=== PATIENT | female | born 1950 | race Caucasian/White ===

== ENCOUNTER 2016-12-15 16:57 | Emergency (ER) | payer MEDICARE ==
[~2016-12-15] VITALS: Ht 152.4 cm; Wt 47.3 kg
[2016-12-15] MEDS ORDERED: LAMO100 PO (17:55)
[2016-12-15] MEDS ORDERED: PHENY100 PO (17:55)
[2016-12-15] MEDS ORDERED: LEVE500T53 PO ×2 (17:55)
[2016-12-15] MEDS ORDERED: LamoTRIgine 100 MG TABLET PO ONE (18:15)
[2016-12-15] MEDS ORDERED: LevETIRAcetam 500 MG TABLET PO ONE (18:15)
[2016-12-15] MEDS ORDERED: PHENYTOIN SODIUM 100 MG ER CAPSULE PO ONE (18:15)
[2016-12-15 18:25] LABS: BASOPHILS # (AUTO) 0.01 K/uL (0.00-0.20); BASOPHILS % (AUTO) 0.1 % (0.0-2.0); EOSINOPHILS # (AUTO) 0.09 K/uL (0.00-0.70); EOSINOPHILS % (AUTO) 1.07 % (1.0-6.0); HEMATOCRIT 40.7 % (36-46); HEMOGLOBIN 14.2 g/dL (12.0-16.0); LYMPHOCYTES % (AUTO) 22.2 % (22.0-44.0); MEAN CORPUSCULAR HEMOGLOBIN 32.6 pg (26.0-34.0); MEAN CORPUSCULAR HGB CONC 34.8 G/dL (31.0-37.0); MEAN CORPUSCULAR VOLUME 94 fL (80-100); MONOCYTES # (AUTO) 0.6 K/uL (0.1-1.0); MONOCYTES % (AUTO) 6.3 % (2.0-9.0); NEUTROPHILS # (AUTO) 6.3 K/uL (1.8-7.7); NEUTROPHILS % (AUTO) 70.3 % (40.0-70.0); PLATELET COUNT (AUTO) 375 K/uL (150-450); RED BLOOD CELL COUNT(AUTO) 4.35 MIL/uL (4.00-5.20); RED CELL DISTRIBUTION WIDTH 14.2 % (11.5-14.5); WHITE BLOOD COUNT (AUTO) 8.9 K/uL (4.5-11.0)
[2016-12-15 18:52] LABS: ANION GAP 9 mmol/L (8-16); CALCIUM, TOTAL 8.4 mg/dL (8.8-10.5); CARBON DIOXIDE 26 mmol/L (22-29); CHLORIDE 95 mmol/L (98-107); CREATININE 0.58 mg/dL (0.60-1.30); GLOMERULAR FILTR. RATE CALC > 60 mL/min (>60); POTASSIUM 3.9 mmol/L (3.5-5.1); SODIUM SERUM 130 mmol/L (136-145); UREA NITROGEN, BLOOD 8 mg/dL (7-18)
[2016-12-15 18:57] LABS: ALANINE AMINOTRANSFERASE 25 U/L (12-78); ALBUMIN 3.8 g/dL (3.4-5.0); ASPARTATE AMINOTRANSFERASE 24 U/L (15-37); BILIRUBIN,TOTAL 0.2 mg/dL (0.1-1.0); TOTAL PROTEIN, SERUM 6.9 g/dL (6.4-8.2)
[2016-12-15 19:32] LABS: ADD UA MICROSCOPIC YES; APPEARANCE,URINE CLEAR (CLEAR); GLUCOSE, URINE (UA) NEGATIVE (NEGATIVE); KETONES,URINE NEGATIVE (NEGATIVE); LEUKOCYTE ESTERASE ,URINE TRACE (NEGATIVE); OCCULT BLOOD,URINE NEGATIVE (NEGATIVE); PROTEIN,URINE NEGATIVE (NEGATIVE)
[2016-12-15 19:34] LABS: RBC,URINE None Seen /HPF (0-2); WBC,URINE 0-2 /HPF (0-5)
[2016-12-15 19:35] LABS: SQUAMOUS EPITHELIAL CELL,UR Rare /LPF (None Seen)
[2016-12-15 20:32] VITALS: BP 137/92
== END 2016-12-15 20:36 | disposition home or self-care (01) ==
LOC: EMS 16:57
DX: G40.909 Epilepsy, unspecified, not intractable, without status epilepticus (principal); Z91.14 Patient's other noncompliance with medication regimen
CPT/HCPCS: 93005; 99285

== ENCOUNTER 2016-12-17 06:17 | Emergency (ER) | payer MEDICARE ==
[~2016-12-17] VITALS: Ht 160 cm; Wt 64.0 kg
[~2016-12-17 06:17] MED LIST: LAMO100 PO; LEVE500T53 PO; PHENY100 PO
[2016-12-17] MEDS ORDERED: LamoTRIgine 100 MG TABLET PO ONE (06:45)
[2016-12-17] MEDS ORDERED: LevETIRAcetam 500 MG TABLET PO ONE (06:45)
[2016-12-17 11:50] VITALS: BP 129/86
== END 2016-12-17 12:14 | disposition home or self-care (01) ==
LOC: EMS 06:17
DX: G40.909 Epilepsy, unspecified, not intractable, without status epilepticus (principal); F17.200 Nicotine dependence, unspecified, uncomplicated
CPT/HCPCS: 99283

== ENCOUNTER 2016-12-18 12:42 | Inpatient (IN) | payer MEDICARE ==
[~2016-12-18] VITALS: Ht 149.9 cm; Wt 36.1 kg
[2016-12-18 13:41] LABS: BASOPHILS % (AUTO) 0.3 % (0.0-2.0); EOSINOPHILS % (AUTO) 0.7 % (1.0-6.0); HEMATOCRIT 41.5 % (36-46); HEMOGLOBIN 14.3 g/dL (12.0-16.0); LYMPHOCYTES # (AUTO) 1.8 K/uL (1.0-4.8); LYMPHOCYTES % (AUTO) 15.2 % (22.0-44.0); MEAN CORPUSCULAR HEMOGLOBIN 32.7 pg (26.0-34.0); MEAN CORPUSCULAR HGB CONC 34.6 G/dL (31.0-37.0); MEAN CORPUSCULAR VOLUME 95 fL (80-100); MONOCYTES # (AUTO) 1.1 K/uL (0.1-1.0); MONOCYTES % (AUTO) 9.6 % (2.0-9.0); NEUTROPHILS # (AUTO) 8.6 K/uL (1.8-7.7); NEUTROPHILS % (AUTO) 74.2 % (40.0-70.0); PLATELET COUNT (AUTO) 350 K/uL (150-450); RED BLOOD CELL COUNT(AUTO) 4.38 MIL/uL (4.00-5.20); RED CELL DISTRIBUTION WIDTH 13.9 % (11.5-14.5); WHITE BLOOD COUNT (AUTO) 11.6 K/uL (4.5-11.0)
[2016-12-18 13:51] LABS: ANION GAP 6 mmol/L (8-16); CALCIUM, TOTAL 8.5 mg/dL (8.8-10.5); CARBON DIOXIDE 31 mmol/L (22-29); CHLORIDE 88 mmol/L (98-107); CREATININE 0.69 mg/dL (0.60-1.30); GLOMERULAR FILTR. RATE CALC > 60 mL/min (>60); POTASSIUM 3.7 mmol/L (3.5-5.1); SODIUM SERUM 125 mmol/L (136-145); UREA NITROGEN, BLOOD 15 mg/dL (7-18)
[2016-12-18 13:57] LABS: ALANINE AMINOTRANSFERASE 30 U/L (12-78); ALBUMIN 3.8 g/dL (3.4-5.0); ASPARTATE AMINOTRANSFERASE 32 U/L (15-37); BILIRUBIN,TOTAL 0.4 mg/dL (0.1-1.0)
[2016-12-18] MEDS ORDERED: SODIUM CHLORIDE 0.9% 1,000 ML IV ONE (15:30)
[2016-12-18 16:07] LABS: APPEARANCE,URINE CLEAR (CLEAR); GLUCOSE, URINE (UA) NEGATIVE (NEGATIVE); KETONES,URINE NEGATIVE (NEGATIVE); LEUKOCYTE ESTERASE ,URINE NEGATIVE (NEGATIVE); OCCULT BLOOD,URINE NEGATIVE (NEGATIVE); PH,URINE 6.5 (5.0-8.0); PROTEIN,URINE NEGATIVE (NEGATIVE)
[2016-12-18 16:08] LABS: ADD UA MICROSCOPIC NO
[2016-12-18] MEDS ORDERED: ACETAMINOPHEN 325 MG TABLET PO PRN ×2 (17:15→22:45)
[2016-12-18] MEDS ORDERED: 0.9% SODIUM CHLORIDE 10 ML SYRINGE IVP PRN (17:15)
[2016-12-18] MEDS ORDERED: ONDANSETRON HCL 4 MG/2 ML VIAL IVP PRN ×2 (17:15→22:45)
[2016-12-18 18:29] VITALS: BP 169/94
[2016-12-18] MEDS: PHENYTOIN SODIUM 100 MG ER CAPSULE PO SCH (21:58)
[2016-12-18] MEDS: LevETIRAcetam 500 MG TABLET PO SCH (21:58)
[2016-12-18] MEDS: LamoTRIgine 100 MG TABLET PO SCH (21:59)
[2016-12-18] MEDS ORDERED: HydrALAZINE HCL 25 MG TABLET PO PRN (22:45)
[2016-12-18 23:20] VITALS: BP 142/86
[2016-12-19] MEDS ORDERED: ONDANSETRON HCL 4 MG/2 ML VIAL IVP PRN (01:30)
[2016-12-19] MEDS: DOCUSATE SODIUM 100 MG CAPSULE PO SCH ×3 (01:30→19:46)
[2016-12-19] MEDS ORDERED: 0.9% SODIUM CHLORIDE 10 ML SYRINGE IVP PRN (01:30)
[2016-12-19] MEDS ORDERED: OxyCODONE HCL/ACETAMINOPHEN 5-325 MG TABLET PO PRN ×2 (01:30)
[2016-12-19 04:41] VITALS: BP 139/89
[2016-12-19 07:26] VITALS: BP 135/84
[2016-12-19] MEDS: PHENYTOIN SODIUM 100 MG ER CAPSULE PO SCH ×2 (10:24→19:46)
[2016-12-19] MEDS: LevETIRAcetam 500 MG TABLET PO SCH ×2 (10:24→19:46)
[2016-12-19] MEDS: PANTOPRAZOLE SODIUM 40 MG DR TABLET PO SCH (10:24)
[2016-12-19] MEDS: LamoTRIgine 100 MG TABLET PO SCH ×2 (10:24→19:46)
[2016-12-19 12:01] VITALS: BP 147/91
[2016-12-19 15:13] LABS: BASOPHILS % (AUTO) 1.2 % (0.0-2.0); HEMOGLOBIN 15.2 g/dL (12.0-16.0); LYMPHOCYTES # (AUTO) 2.1 K/uL (1.0-4.8); LYMPHOCYTES % (AUTO) 23.6 % (22.0-44.0); MEAN CORPUSCULAR HEMOGLOBIN 32.6 pg (26.0-34.0); MEAN CORPUSCULAR HGB CONC 34.6 G/dL (31.0-37.0); MEAN CORPUSCULAR VOLUME 94 fL (80-100); MONOCYTES # (AUTO) 0.8 K/uL (0.1-1.0); MONOCYTES % (AUTO) 8.5 % (2.0-9.0); NEUTROPHILS % (AUTO) 65.7 % (40.0-70.0); PLATELET COUNT (AUTO) 353 K/uL (150-450); RED BLOOD CELL COUNT(AUTO) 4.67 MIL/uL (4.00-5.20); RED CELL DISTRIBUTION WIDTH 13.8 % (11.5-14.5); WHITE BLOOD COUNT (AUTO) 9.1 K/uL (4.5-11.0)
[2016-12-19 16:00] LABS: ANION GAP 12 mmol/L (8-16); CALCIUM, TOTAL 8.8 mg/dL (8.8-10.5); CARBON DIOXIDE 24 mmol/L (22-29); CHLORIDE 89 mmol/L (98-107); CREATININE 0.42 mg/dL (0.60-1.30); GLOMERULAR FILTR. RATE CALC > 60 mL/min (>60); POTASSIUM 3.6 mmol/L (3.5-5.1); SODIUM SERUM 125 mmol/L (136-145); UREA NITROGEN, BLOOD 5 mg/dL (7-18)
[2016-12-19 16:11] LABS: ALANINE AMINOTRANSFERASE 31 U/L (12-78); ALBUMIN 4.2 g/dL (3.4-5.0); ASPARTATE AMINOTRANSFERASE 33 U/L (15-37); BILIRUBIN,TOTAL 0.4 mg/dL (0.1-1.0)
[2016-12-19 19:57] VITALS: BP 158/92
[2016-12-20 05:45] VITALS: BP 140/85
[2016-12-20 06:26] LABS: BASOPHILS % (AUTO) 0.2 % (0.0-2.0); EOSINOPHILS % (AUTO) 1.7 % (1.0-6.0); LYMPHOCYTES # (AUTO) 2.1 K/uL (1.0-4.8); MEAN CORPUSCULAR HEMOGLOBIN 32.4 pg (26.0-34.0); MEAN CORPUSCULAR HGB CONC 34.2 G/dL (31.0-37.0); MEAN CORPUSCULAR VOLUME 95 fL (80-100); MONOCYTES # (AUTO) 0.8 K/uL (0.1-1.0); MONOCYTES % (AUTO) 10.2 % (2.0-9.0); NEUTROPHILS # (AUTO) 4.6 K/uL (1.8-7.7); NEUTROPHILS % (AUTO) 59.9 % (40.0-70.0); PLATELET COUNT (AUTO) 337 K/uL (150-450); RED BLOOD CELL COUNT(AUTO) 4.33 MIL/uL (4.00-5.20); RED CELL DISTRIBUTION WIDTH 14.1 % (11.5-14.5); WHITE BLOOD COUNT (AUTO) 7.7 K/uL (4.5-11.0)
[2016-12-20 07:01] LABS: ALANINE AMINOTRANSFERASE 27 U/L (12-78); ALBUMIN 3.5 g/dL (3.4-5.0); ANION GAP 9 mmol/L (8-16); ASPARTATE AMINOTRANSFERASE 28 U/L (15-37); BILIRUBIN,TOTAL 0.4 mg/dL (0.1-1.0); CALCIUM, TOTAL 8.3 mg/dL (8.8-10.5); CARBON DIOXIDE 27 mmol/L (22-29); CHLORIDE 90 mmol/L (98-107); CREATININE 0.49 mg/dL (0.60-1.30); GLOMERULAR FILTR. RATE CALC > 60 mL/min (>60); POTASSIUM 3.4 mmol/L (3.5-5.1); SODIUM SERUM 126 mmol/L (136-145); TOTAL PROTEIN, SERUM 6.7 g/dL (6.4-8.2); UREA NITROGEN, BLOOD 4 mg/dL (7-18)
[2016-12-20 07:46] VITALS: BP 138/83
[2016-12-20] MEDS: DOCUSATE SODIUM 100 MG CAPSULE PO SCH ×2 (08:06→20:32)
[2016-12-20] MEDS: PHENYTOIN SODIUM 100 MG ER CAPSULE PO SCH ×2 (08:06→20:33)
[2016-12-20] MEDS: LevETIRAcetam 500 MG TABLET PO SCH ×2 (08:06→20:33)
[2016-12-20] MEDS: LamoTRIgine 100 MG TABLET PO SCH ×2 (08:06→20:33)
[2016-12-20] MEDS: PANTOPRAZOLE SODIUM 40 MG DR TABLET PO SCH (08:06)
[2016-12-20 11:30] VITALS: BP 140/73
[2016-12-20 15:18] VITALS: BP 122/89
[2016-12-20] MEDS ORDERED: POTASSIUM CHLORIDE 20 MEQ ER TABLET PO ONE (16:30)
[2016-12-20] MEDS: SODIUM CHLORIDE 0.9% 1,000 ML IV SCH (17:24)
[2016-12-20 19:37] VITALS: BP 122/68
[2016-12-20 23:08] VITALS: BP 112/74
[2016-12-21 04:00] VITALS: BP 107/81
[2016-12-21] MEDS: SODIUM CHLORIDE 0.9% 1,000 ML IV SCH ×2 (05:35→18:15)
[2016-12-21 06:03] LABS: BASOPHILS % (AUTO) 0.1 % (0.0-2.0); EOSINOPHILS % (AUTO) 2.3 % (1.0-6.0); HEMATOCRIT 37.9 % (36-46); HEMOGLOBIN 13.1 g/dL (12.0-16.0); LYMPHOCYTES # (AUTO) 2.2 K/uL (1.0-4.8); LYMPHOCYTES % (AUTO) 28.6 % (22.0-44.0); MEAN CORPUSCULAR HEMOGLOBIN 32.8 pg (26.0-34.0); MEAN CORPUSCULAR HGB CONC 34.5 G/dL (31.0-37.0); MEAN CORPUSCULAR VOLUME 95 fL (80-100); MONOCYTES # (AUTO) 0.7 K/uL (0.1-1.0); MONOCYTES % (AUTO) 8.9 % (2.0-9.0); NEUTROPHILS # (AUTO) 4.6 K/uL (1.8-7.7); NEUTROPHILS % (AUTO) 60.1 % (40.0-70.0); PLATELET COUNT (AUTO) 333 K/uL (150-450); RED BLOOD CELL COUNT(AUTO) 3.99 MIL/uL (4.00-5.20); RED CELL DISTRIBUTION WIDTH 14.2 % (11.5-14.5); WHITE BLOOD COUNT (AUTO) 7.6 K/uL (4.5-11.0)
[2016-12-21 07:14] VITALS: BP 138/68
[2016-12-21 07:37] LABS: ALANINE AMINOTRANSFERASE 25 U/L (12-78); ALBUMIN 3.1 g/dL (3.4-5.0); ANION GAP 8 mmol/L (8-16); ASPARTATE AMINOTRANSFERASE 21 U/L (15-37); BILIRUBIN,TOTAL 0.3 mg/dL (0.1-1.0); CARBON DIOXIDE 25 mmol/L (22-29); CHLORIDE 93 mmol/L (98-107); CREATININE 0.44 mg/dL (0.60-1.30); GLOMERULAR FILTR. RATE CALC > 60 mL/min (>60); SODIUM SERUM 126 mmol/L (136-145); UREA NITROGEN, BLOOD 5 mg/dL (7-18)
[2016-12-21] MEDS: PANTOPRAZOLE SODIUM 40 MG DR TABLET PO SCH (09:13)
[2016-12-21] MEDS: PHENYTOIN SODIUM 100 MG ER CAPSULE PO SCH ×2 (09:13→20:22)
[2016-12-21] MEDS: DOCUSATE SODIUM 100 MG CAPSULE PO SCH ×2 (09:13→21:00)
[2016-12-21] MEDS: LamoTRIgine 100 MG TABLET PO SCH ×2 (09:15→20:23)
[2016-12-21] MEDS: LevETIRAcetam 500 MG TABLET PO SCH ×2 (09:16→20:23)
[2016-12-21] MEDS ORDERED: POTASSIUM CHLORIDE 20 MEQ ER TABLET PO ONE (10:00)
[2016-12-21 11:42] VITALS: BP 115/68
[2016-12-21 15:30] VITALS: BP 152/78
[2016-12-21 19:18] VITALS: BP 123/70
[2016-12-21] MEDS: SODIUM CHLORIDE 1 GM TABLET PO SCH (20:23)
[2016-12-21 23:18] VITALS: BP 137/83
[2016-12-22 04:00] VITALS: BP 117/67
[2016-12-22 05:51] LABS: BASOPHILS # (AUTO) 0.06 K/uL (0.00-0.20); BASOPHILS % (AUTO) 0.8 % (0.0-2.0); EOSINOPHILS % (AUTO) 2.49 % (1.0-6.0); HEMATOCRIT 41.1 % (36-46); LYMPHOCYTES # (AUTO) 2.3 K/uL (1.0-4.8); LYMPHOCYTES % (AUTO) 28.3 % (22.0-44.0); MEAN CORPUSCULAR HEMOGLOBIN 32.5 pg (26.0-34.0); MEAN CORPUSCULAR VOLUME 96 fL (80-100); MONOCYTES # (AUTO) 0.7 K/uL (0.1-1.0); MONOCYTES % (AUTO) 8.6 % (2.0-9.0); NEUTROPHILS # (AUTO) 4.8 K/uL (1.8-7.7); NEUTROPHILS % (AUTO) 59.8 % (40.0-70.0); PLATELET COUNT (AUTO) 326 K/uL (150-450); RED CELL DISTRIBUTION WIDTH 14.6 % (11.5-14.5)
[2016-12-22 06:09] LABS: ALANINE AMINOTRANSFERASE 25 U/L (12-78); ALBUMIN 3.2 g/dL (3.4-5.0); ANION GAP 8 mmol/L (8-16); ASPARTATE AMINOTRANSFERASE 22 U/L (15-37); BILIRUBIN,TOTAL 0.2 mg/dL (0.1-1.0); CALCIUM, TOTAL 8.4 mg/dL (8.8-10.5); CARBON DIOXIDE 27 mmol/L (22-29); CHLORIDE 97 mmol/L (98-107); CREATININE 0.44 mg/dL (0.60-1.30); GLOMERULAR FILTR. RATE CALC > 60 mL/min (>60); POTASSIUM 4.6 mmol/L (3.5-5.1); SODIUM SERUM 132 mmol/L (136-145); TOTAL PROTEIN, SERUM 6.3 g/dL (6.4-8.2); UREA NITROGEN, BLOOD 6 mg/dL (7-18)
[2016-12-22 08:02] VITALS: BP 132/74
[2016-12-22] MEDS: LamoTRIgine 100 MG TABLET PO SCH (08:57)
[2016-12-22] MEDS: PHENYTOIN SODIUM 100 MG ER CAPSULE PO SCH (08:58)
[2016-12-22] MEDS: LevETIRAcetam 500 MG TABLET PO SCH (08:58)
[2016-12-22] MEDS: DOCUSATE SODIUM 100 MG CAPSULE PO SCH (08:58)
[2016-12-22] MEDS: PANTOPRAZOLE SODIUM 40 MG DR TABLET PO SCH (08:58)
[2016-12-22] MEDS: SODIUM CHLORIDE 1 GM TABLET PO SCH (08:58)
[2016-12-22 11:56] VITALS: BP 133/74
[2016-12-22 15:26] VITALS: BP 119/54
== END 2016-12-22 16:52 | disposition home or self-care (01) | DRG 100 ==
LOC: EMS 12:43 → 6N 17:38
PROVIDERS: ADMIT Internal Medicine; ATTEND Internal Medicine
DX: G40.909 Epilepsy, unspecified, not intractable, without status epilepticus (principal); G93.41 Metabolic encephalopathy; E87.1 Hypo-osmolality and hyponatremia; I42.9 Cardiomyopathy, unspecified; Z68.1 Body mass index [BMI] 19.9 or less, adult; Z90.49 Acquired absence of other specified parts of digestive tract; Z95.810 Presence of automatic (implantable) cardiac defibrillator; F17.210 Nicotine dependence, cigarettes, uncomplicated; E87.6 Hypokalemia; I10 Essential (primary) hypertension; R63.6 Underweight
CPT/HCPCS: 70450; 83930; 83935; 84300; 84443; 93005; 95816; 96360; 99285; J7030

== ENCOUNTER 2017-10-29 18:20 | Inpatient (IN) | payer MEDICARE ==
[~2017-10-29] VITALS: Ht 144.8 cm; Wt 43.4 kg
[2017-10-29 19:39] LABS: GLUCOSE,POINT OF CARE 126 MG/DL (70-110)
[2017-10-29] MEDS ORDERED: RISP3TAB13 PO ×2 (19:46→22:09)
[2017-10-29] MEDS ORDERED: LAMO200T51 PO (19:46)
[2017-10-29 20:07] LABS: BASOPHILS % (AUTO) 0.3 % (0.0-2.0); EOSINOPHILS % (AUTO) 0 % (1.0-6.0); HEMATOCRIT 42.5 % (36-46); HEMOGLOBIN 14.9 g/dL (12.0-16.0); LYMPHOCYTES # (AUTO) 1.2 K/uL (1.0-4.8); MEAN CORPUSCULAR HEMOGLOBIN 32.9 pg (26.0-34.0); MEAN CORPUSCULAR HGB CONC 35.1 G/dL (31.0-37.0); MEAN CORPUSCULAR VOLUME 94 fL (80-100); MONOCYTES # (AUTO) 0.5 K/uL (0.1-1.0); NEUTROPHILS # (AUTO) 7.8 K/uL (1.8-7.7); NEUTROPHILS % (AUTO) 81.7 % (40.0-70.0); PLATELET COUNT (AUTO) 430 K/uL (150-450); RED BLOOD CELL COUNT(AUTO) 4.53 MIL/uL (4.00-5.20); RED CELL DISTRIBUTION WIDTH 14.1 % (11.5-14.5)
[2017-10-29 20:22] LABS: ANION GAP 9 mmol/L (8-16); CALCIUM, TOTAL 9.9 mg/dL (8.8-10.5); CARBON DIOXIDE 29 mmol/L (22-29); CHLORIDE 95 mmol/L (98-107); CREATININE 0.65 mg/dL (0.60-1.30); GLOMERULAR FILTR. RATE CALC > 60 mL/min (>60); GLUCOSE,RANDOM 127 mg/dL (70-110); POTASSIUM 3.9 mmol/L (3.5-5.1); SODIUM SERUM 133 mmol/L (136-145); UREA NITROGEN, BLOOD 13 mg/dL (7-18)
[2017-10-29 20:28] LABS: ALANINE AMINOTRANSFERASE 27 U/L (12-78); ALBUMIN 4.3 g/dL (3.4-5.0); ALKALINE PHOSPHATASE 190 U/L (46-116); ASPARTATE AMINOTRANSFERASE 28 U/L (15-37); BILIRUBIN,TOTAL 0.4 mg/dL (0.1-1.0); LIPASE 222 U/L (73-393); TOTAL PROTEIN, SERUM 7.9 g/dL (6.4-8.2)
[2017-10-29] MEDS ORDERED: RisperiDONE 1 MG TABLET PO ONE (22:00)
[2017-10-29] MEDS ORDERED: LORazepam 2 MG TABLET PO ONE (22:00)
[2017-10-29] MEDS: LevETIRAcetam 500 MG TABLET PO ONE ×2 (22:07→22:13)
[2017-10-29 22:08] LABS: PHENYTOIN (DILANTIN) 3.1 mcg/mL (10.0-20.0)
[2017-10-29] MEDS ORDERED: LevETIRAcetam 1,000 MG in DEXTROSE 5%-WATER 100 ML IV ONE (22:30)
[2017-10-29] MEDS ORDERED: LORazepam 2 MG/ML VIAL IVP ONE (22:30)
[2017-10-30] VITALS (7 sets, daily range): BP systolic 121–146; BP diastolic 73–112
[2017-10-30] MEDS ORDERED: 0.9% SODIUM CHLORIDE 10 ML SYRINGE IVP PRN
[2017-10-30] MEDS ORDERED: PHENYTOIN SODIUM 100 MG ER CAPSULE PO ONE
[2017-10-30] MEDS ORDERED: ONDANSETRON HCL 4 MG/2 ML VIAL IVP PRN ×2 (01:15)
[2017-10-30] MEDS ORDERED: IPRATROPIUM BROMIDE 0.5 MG/2.5 ML NEB SOLUTION NEB PRN (01:15)
[2017-10-30] MEDS ORDERED: ACETAMINOPHEN 325 MG TABLET PO PRN ×2 (01:15)
[2017-10-30] MEDS ORDERED: BISACODYL 10 MG RECTAL RECTAL SUPPOSITORY PR PRN (01:15)
[2017-10-30] MEDS ORDERED: ALBUTEROL SULFATE 2.5 MG/0.5 ML NEB SOLUTION NEB PRN (01:15)
[2017-10-30] MEDS ORDERED: ZOLPIDEM TARTRATE 5 MG TABLET PO PRN (01:15)
[2017-10-30] MEDS ORDERED: HYDROCODONE/ACETAMINOPHEN 5-325 MG TABLET PO PRN (01:15)
[2017-10-30] MEDS ORDERED: PHENYTOIN SODIUM 1,000 MG in SODIUM CHLORIDE 0.9% 150 ML IV ONE (02:00)
[2017-10-30] MEDS ORDERED: LevETIRAcetam 500 MG TABLET PO ONE (07:00)
[2017-10-30] MEDS: LevETIRAcetam 500 MG TABLET PO SCH ×2 (08:59→21:04)
[2017-10-30] MEDS: HEPARIN SODIUM,PORCINE 5,000 UNITS/ML VIAL SQ SCH ×2 (08:59→21:05)
[2017-10-30] MEDS: PANTOPRAZOLE SODIUM 40 MG DR TABLET PO SCH (08:59)
[2017-10-30] MEDS: PHENYTOIN SODIUM 100 MG ER CAPSULE PO SCH ×2 (08:59→20:56)
[2017-10-31] VITALS (7 sets, daily range): BP systolic 102–182; BP diastolic 56–101
[2017-10-31 06:59] LABS: BASOPHILS % (AUTO) 0.3 % (0.0-2.0); EOSINOPHILS % (AUTO) 0.1 % (1.0-6.0); HEMATOCRIT 41.5 % (36-46); HEMOGLOBIN 14.7 g/dL (12.0-16.0); LYMPHOCYTES # (AUTO) 1.4 K/uL (1.0-4.8); LYMPHOCYTES % (AUTO) 14.2 % (22.0-44.0); MEAN CORPUSCULAR HEMOGLOBIN 33.1 pg (26.0-34.0); MEAN CORPUSCULAR HGB CONC 35.4 G/dL (31.0-37.0); MEAN CORPUSCULAR VOLUME 94 fL (80-100); MONOCYTES # (AUTO) 0.7 K/uL (0.1-1.0); MONOCYTES % (AUTO) 7.1 % (2.0-9.0); NEUTROPHILS # (AUTO) 7.8 K/uL (1.8-7.7); NEUTROPHILS % (AUTO) 78.3 % (40.0-70.0); PLATELET COUNT (AUTO) 393 K/uL (150-450); RED BLOOD CELL COUNT(AUTO) 4.44 MIL/uL (4.00-5.20); RED CELL DISTRIBUTION WIDTH 13.6 % (11.5-14.5)
[2017-10-31 07:24] LABS: ALANINE AMINOTRANSFERASE 28 U/L (12-78); ALBUMIN 3.9 g/dL (3.4-5.0); ALKALINE PHOSPHATASE 154 U/L (46-116); ANION GAP 10 mmol/L (8-16); ASPARTATE AMINOTRANSFERASE 33 U/L (15-37); BILIRUBIN,TOTAL 0.5 mg/dL (0.1-1.0); CALCIUM, TOTAL 8.9 mg/dL (8.8-10.5); CARBON DIOXIDE 29 mmol/L (22-29); CHLORIDE 94 mmol/L (98-107); CHOL/HDL RATIO 2.2 (3.9-5.7); CHOLESTEROL 183 mg/dL (131-200); CREATININE 0.58 mg/dL (0.60-1.30); GLOMERULAR FILTR. RATE CALC > 60 mL/min (>60); GLUCOSE,RANDOM 113 mg/dL (70-110); HDL CHOLESTEROL 83 mg/dL (40-60); LDL CHOL (CALC.) 92 mg/dL (0-130); PHOSPHORUS 2.9 mg/dL (2.5-4.9); POTASSIUM 3.2 mmol/L (3.5-5.1); SODIUM SERUM 133 mmol/L (136-145); THYROID STIMULATING HORMONE 1.37 uIU/mL (0.36-3.74); TOTAL PROTEIN, SERUM 7.2 g/dL (6.4-8.2); TRIGLYCERIDES 40 mg/dL (15-150); UREA NITROGEN, BLOOD 13 mg/dL (7-18)
[2017-10-31 07:26] LABS: HEMOGLOBIN A1C 4.8 % (4.5-6.2)
[2017-10-31] MEDS: PHENYTOIN SODIUM 100 MG ER CAPSULE PO SCH ×4 (08:14→21:36)
[2017-10-31] MEDS: LevETIRAcetam 500 MG TABLET PO SCH ×2 (08:14→21:36)
[2017-10-31] MEDS: HEPARIN SODIUM,PORCINE 5,000 UNITS/ML VIAL SQ SCH ×2 (08:14→21:36)
[2017-10-31] MEDS: PANTOPRAZOLE SODIUM 40 MG DR TABLET PO SCH (08:14)
[2017-10-31] MEDS ORDERED: POTASSIUM CHLORIDE 20 MEQ ER TABLET PO PRN (08:15)
[2017-10-31 09:22] LABS: AMPHET/METH SCREEN,URINE NEGATIVE (NEGATIVE); BARBITURATE SCREEN, URINE NEGATIVE (NEGATIVE); BENZODIAZEPINES SCREEN,URINE NEGATIVE (NEGATIVE); CANNABINOID SCREEN,URINE NEGATIVE (NEGATIVE); COCAINE SCREEN,URINE NEGATIVE (NEGATIVE); METHADONE SCREEN, URINE NEGATIVE (NEGATIVE); OPIATE SCREEN,URINE NEGATIVE (NEGATIVE)
[2017-10-31 09:28] LABS: PHENCYCLIDINE SCREEN,URINE NEGATIVE (NEGATIVE)
[2017-10-31] MEDS ORDERED: LORazepam 2 MG/ML VIAL IVP PRN (10:30)
[2017-10-31] MEDS ORDERED: PHENYTOIN SODIUM 1,000 MG in SODIUM CHLORIDE 0.9% 150 ML IV ONE (10:30)
[2017-10-31] MEDS ORDERED: SODIUM CHLORIDE 0.9% 100 ML ONE (10:59)
[2017-10-31] MEDS: POTASSIUM CHL 10 MEQ/WATER 50 ML IV PRN ×3 (13:13→15:43)
[2017-10-31] MEDS ORDERED: SODIUM CHLORIDE 0.9% 250 ML IV ONE (14:14)
[2017-11-01] VITALS (7 sets, daily range): BP systolic 98–159; BP diastolic 65–102
[2017-11-01 06:13] LABS: BASOPHILS % (AUTO) 0.3 % (0.0-2.0); EOSINOPHILS % (AUTO) 0.1 % (1.0-6.0); HEMATOCRIT 42.8 % (36-46); HEMOGLOBIN 15.1 g/dL (12.0-16.0); LYMPHOCYTES # (AUTO) 1.7 K/uL (1.0-4.8); LYMPHOCYTES % (AUTO) 14.9 % (22.0-44.0); MEAN CORPUSCULAR HEMOGLOBIN 32.9 pg (26.0-34.0); MEAN CORPUSCULAR HGB CONC 35.3 G/dL (31.0-37.0); MEAN CORPUSCULAR VOLUME 93 fL (80-100); NEUTROPHILS # (AUTO) 8.5 K/uL (1.8-7.7); NEUTROPHILS % (AUTO) 75.7 % (40.0-70.0); PLATELET COUNT (AUTO) 383 K/uL (150-450); RED BLOOD CELL COUNT(AUTO) 4.59 MIL/uL (4.00-5.20); RED CELL DISTRIBUTION WIDTH 13.8 % (11.5-14.5)
[2017-11-01 06:53] LABS: ANION GAP 12 mmol/L (8-16); CALCIUM, TOTAL 8.9 mg/dL (8.8-10.5); CARBON DIOXIDE 28 mmol/L (22-29); CHLORIDE 95 mmol/L (98-107); CREATININE 0.47 mg/dL (0.60-1.30); GLOMERULAR FILTR. RATE CALC > 60 mL/min (>60); GLUCOSE,RANDOM 124 mg/dL (70-110); PHOSPHORUS 2.9 mg/dL (2.5-4.9); SODIUM SERUM 135 mmol/L (136-145); UREA NITROGEN, BLOOD 11 mg/dL (7-18)
[2017-11-01 07:07] LABS: POTASSIUM 2.7 mmol/L (3.5-5.1)
[2017-11-01 07:34] LABS: PHENYTOIN (DILANTIN) 20.7 mcg/mL (10.0-20.0)
[2017-11-01] MEDS: POTASSIUM CHL 10 MEQ/WATER 50 ML IV PRN ×4 (08:10→12:04)
[2017-11-01] MEDS: PANTOPRAZOLE SODIUM 40 MG DR TABLET PO SCH (08:15)
[2017-11-01] MEDS: HEPARIN SODIUM,PORCINE 5,000 UNITS/ML VIAL SQ SCH ×2 (08:16→21:19)
[2017-11-01] MEDS: LevETIRAcetam 500 MG TABLET PO SCH ×2 (08:16→21:18)
[2017-11-01] MEDS: PHENYTOIN SODIUM 100 MG ER CAPSULE PO SCH ×3 (08:27→21:18)
[2017-11-01] MEDS ORDERED: SODIUM CHLORIDE 0.9% 1,000 ML IV ONE (08:29)
[2017-11-01] MEDS: METOPROLOL SUCCINATE 25 MG ER TABLET PO SCH (15:02)
[2017-11-01 21:14] LABS: GLUCOMETER DEV NAME(LOC) 5N 2S; GLUCOSE,POINT OF CARE 211 MG/DL (70-110)
[2017-11-02] VITALS (7 sets, daily range): BP systolic 122–157; BP diastolic 61–86
[2017-11-02] MEDS: PHENYTOIN SODIUM 100 MG ER CAPSULE PO SCH ×3 (08:39→20:03)
[2017-11-02] MEDS: PANTOPRAZOLE SODIUM 40 MG DR TABLET PO SCH (08:39)
[2017-11-02] MEDS: METOPROLOL SUCCINATE 25 MG ER TABLET PO SCH (08:39)
[2017-11-02] MEDS: HEPARIN SODIUM,PORCINE 5,000 UNITS/ML VIAL SQ SCH ×2 (08:40→20:03)
[2017-11-02] MEDS: LevETIRAcetam 500 MG TABLET PO SCH ×2 (08:40→20:03)
[2017-11-03 03:47] VITALS: BP 115/83
[2017-11-03 06:43] LABS: BASOPHILS % (AUTO) 0.3 % (0.0-2.0); EOSINOPHILS % (AUTO) 0.1 % (1.0-6.0); HEMOGLOBIN 14.7 g/dL (12.0-16.0); LYMPHOCYTES # (AUTO) 1.8 K/uL (1.0-4.8); LYMPHOCYTES % (AUTO) 16.8 % (22.0-44.0); MEAN CORPUSCULAR VOLUME 94 fL (80-100); MONOCYTES % (AUTO) 9.5 % (2.0-9.0); NEUTROPHILS # (AUTO) 7.9 K/uL (1.8-7.7); NEUTROPHILS % (AUTO) 73.3 % (40.0-70.0); PLATELET COUNT (AUTO) 363 K/uL (150-450); RED BLOOD CELL COUNT(AUTO) 4.46 MIL/uL (4.00-5.20); RED CELL DISTRIBUTION WIDTH 13.2 % (11.5-14.5)
[2017-11-03 06:57] LABS: ALANINE AMINOTRANSFERASE 27 U/L (12-78); ALBUMIN 3.6 g/dL (3.4-5.0); ALKALINE PHOSPHATASE 135 U/L (46-116); ANION GAP 9 mmol/L (8-16); ASPARTATE AMINOTRANSFERASE 23 U/L (15-37); BILIRUBIN,TOTAL 0.8 mg/dL (0.1-1.0); CALCIUM, TOTAL 8.9 mg/dL (8.8-10.5); CARBON DIOXIDE 29 mmol/L (22-29); CHLORIDE 93 mmol/L (98-107); CREATININE 0.48 mg/dL (0.60-1.30); GLOMERULAR FILTR. RATE CALC > 60 mL/min (>60); GLUCOSE,RANDOM 113 mg/dL (70-110); PHENYTOIN (DILANTIN) 13.6 mcg/mL (10.0-20.0); PHOSPHORUS 2.8 mg/dL (2.5-4.9); SODIUM SERUM 131 mmol/L (136-145); TOTAL PROTEIN, SERUM 7.2 g/dL (6.4-8.2); UREA NITROGEN, BLOOD 20 mg/dL (7-18)
[2017-11-03 07:04] LABS: POTASSIUM 2.9 mmol/L (3.5-5.1)
[2017-11-03] MEDS: POTASSIUM CHL 10 MEQ/WATER 50 ML IV PRN ×4 (07:42→13:35)
[2017-11-03] MEDS: PHENYTOIN SODIUM 100 MG ER CAPSULE PO SCH ×3 (07:42→20:15)
[2017-11-03] MEDS: METOPROLOL SUCCINATE 25 MG ER TABLET PO SCH (07:42)
[2017-11-03] MEDS: HEPARIN SODIUM,PORCINE 5,000 UNITS/ML VIAL SQ SCH ×2 (07:42→20:16)
[2017-11-03] MEDS: LevETIRAcetam 500 MG TABLET PO SCH ×2 (07:42→20:16)
[2017-11-03] MEDS: PANTOPRAZOLE SODIUM 40 MG DR TABLET PO SCH (07:42)
[2017-11-03 08:37] VITALS: BP 113/70
[2017-11-03 12:23] VITALS: BP 119/80
[2017-11-03 17:04] VITALS: BP 110/69
[2017-11-03 19:30] VITALS: BP 125/76
[2017-11-03 23:30] VITALS: BP 119/79
[2017-11-04 04:48] VITALS: BP 113/69
[2017-11-04 06:27] LABS: ANION GAP 12 mmol/L (8-16); CALCIUM, TOTAL 8.9 mg/dL (8.8-10.5); CARBON DIOXIDE 26 mmol/L (22-29); CHLORIDE 95 mmol/L (98-107); CREATININE 0.49 mg/dL (0.60-1.30); GLOMERULAR FILTR. RATE CALC > 60 mL/min (>60); GLUCOSE,RANDOM 96 mg/dL (70-110); PHOSPHORUS 3.4 mg/dL (2.5-4.9); POTASSIUM 3.2 mmol/L (3.5-5.1); SODIUM SERUM 133 mmol/L (136-145); UREA NITROGEN, BLOOD 20 mg/dL (7-18)
[2017-11-04 08:12] VITALS: BP 115/77
[2017-11-04] MEDS: PHENYTOIN SODIUM 100 MG ER CAPSULE PO SCH ×3 (08:32→20:55)
[2017-11-04] MEDS: METOPROLOL SUCCINATE 25 MG ER TABLET PO SCH (08:32)
[2017-11-04] MEDS: LevETIRAcetam 500 MG TABLET PO SCH ×2 (08:32→20:55)
[2017-11-04] MEDS: PANTOPRAZOLE SODIUM 40 MG DR TABLET PO SCH (08:32)
[2017-11-04] MEDS: HEPARIN SODIUM,PORCINE 5,000 UNITS/ML VIAL SQ SCH ×2 (10:21→20:55)
[2017-11-04 11:27] VITALS: BP 113/71
[2017-11-04 15:28] VITALS: BP 118/68
[2017-11-04 20:20] VITALS: BP 104/64
[2017-11-05 00:30] VITALS: BP 99/64
[2017-11-05 04:20] VITALS: BP 118/67
[2017-11-05 07:17] VITALS: BP 129/71
[2017-11-05] MEDS: PANTOPRAZOLE SODIUM 40 MG DR TABLET PO SCH (07:55)
[2017-11-05] MEDS: LevETIRAcetam 500 MG TABLET PO SCH ×2 (07:55→20:55)
[2017-11-05] MEDS: METOPROLOL SUCCINATE 25 MG ER TABLET PO SCH (07:55)
[2017-11-05] MEDS: HEPARIN SODIUM,PORCINE 5,000 UNITS/ML VIAL SQ SCH ×2 (07:55→20:56)
[2017-11-05] MEDS: PHENYTOIN SODIUM 100 MG ER CAPSULE PO SCH ×3 (07:55→20:55)
[2017-11-05 11:19] VITALS: BP 120/68
[2017-11-05 16:11] VITALS: BP 127/65
[2017-11-05 19:18] VITALS: BP 109/52
[2017-11-05] MEDS: LamoTRIgine 100 MG TABLET PO SCH (20:56)
[2017-11-05] MEDS: RisperiDONE 3 MG TABLET PO SCH (20:56)
[2017-11-05] MEDS: MAGNESIUM HYDROXIDE SUSPENSION 30 ML UDCUP PO PRN (21:19)
[2017-11-06] VITALS (7 sets, daily range): BP systolic 87–137; BP diastolic 50–72
[2017-11-06] MEDS: HEPARIN SODIUM,PORCINE 5,000 UNITS/ML VIAL SQ SCH ×2 (08:23→21:09)
[2017-11-06] MEDS: PHENYTOIN SODIUM 100 MG ER CAPSULE PO SCH ×3 (08:23→21:08)
[2017-11-06] MEDS: LamoTRIgine 100 MG TABLET PO SCH ×2 (08:24→21:09)
[2017-11-06] MEDS: METOPROLOL SUCCINATE 25 MG ER TABLET PO SCH (08:25)
[2017-11-06] MEDS: PANTOPRAZOLE SODIUM 40 MG DR TABLET PO SCH (08:25)
[2017-11-06] MEDS: LevETIRAcetam 500 MG TABLET PO SCH ×2 (08:25→21:09)
[2017-11-06] MEDS: RisperiDONE 3 MG TABLET PO SCH (21:08)
[2017-11-06] MEDS ORDERED: SODIUM CHLORIDE 0.9% 250 ML IV ONE ×2 (21:50→22:00)
[2017-11-06] MEDS ORDERED: SODIUM CHLORIDE 0.9% 1,000 ML IV ONE ×2 (21:50→22:00)
[2017-11-07 00:08] VITALS: BP 116/48
[2017-11-07 04:16] VITALS: BP 118/60
[2017-11-07 07:24] VITALS: BP 116/58
[2017-11-07] MEDS: LamoTRIgine 100 MG TABLET PO SCH ×2 (08:55→20:32)
[2017-11-07] MEDS: PHENYTOIN SODIUM 100 MG ER CAPSULE PO SCH ×3 (08:55→20:31)
[2017-11-07] MEDS: HEPARIN SODIUM,PORCINE 5,000 UNITS/ML VIAL SQ SCH ×2 (08:55→20:32)
[2017-11-07] MEDS: PANTOPRAZOLE SODIUM 40 MG DR TABLET PO SCH (08:56)
[2017-11-07] MEDS: LevETIRAcetam 500 MG TABLET PO SCH ×2 (08:56→20:33)
[2017-11-07 11:10] VITALS: BP 111/60
[2017-11-07 16:59] VITALS: BP 117/68
[2017-11-07 19:47] VITALS: BP 97/65
[2017-11-07] MEDS: RisperiDONE 3 MG TABLET PO SCH (20:32)
[2017-11-08 00:04] VITALS: BP 105/56
[2017-11-08 04:01] VITALS: BP 107/60
[2017-11-08 07:34] VITALS: BP 140/62
[2017-11-08] MEDS: HEPARIN SODIUM,PORCINE 5,000 UNITS/ML VIAL SQ SCH ×2 (08:39→19:43)
[2017-11-08] MEDS: LamoTRIgine 100 MG TABLET PO SCH ×2 (08:39→19:43)
[2017-11-08] MEDS: PHENYTOIN SODIUM 100 MG ER CAPSULE PO SCH ×3 (08:39→19:43)
[2017-11-08] MEDS: PANTOPRAZOLE SODIUM 40 MG DR TABLET PO SCH (08:39)
[2017-11-08] MEDS: LevETIRAcetam 500 MG TABLET PO SCH ×2 (08:40→19:43)
[2017-11-08 12:00] VITALS: BP 125/68
[2017-11-08] MEDS: METOPROLOL SUCCINATE 25 MG ER TABLET PO SCH (13:56)
[2017-11-08 16:23] VITALS: BP 103/56
[2017-11-08 19:35] VITALS: BP 104/61
[2017-11-08] MEDS: RisperiDONE 3 MG TABLET PO SCH (19:43)
[2017-11-09 00:06] VITALS: BP 155/101
[2017-11-09 05:10] VITALS: BP 147/77
[2017-11-09 08:13] VITALS: BP 112/62
[2017-11-09] MEDS: PANTOPRAZOLE SODIUM 40 MG DR TABLET PO SCH (09:08)
[2017-11-09] MEDS: PHENYTOIN SODIUM 100 MG ER CAPSULE PO SCH ×3 (09:08→19:54)
[2017-11-09] MEDS: LamoTRIgine 100 MG TABLET PO SCH ×2 (09:08→19:53)
[2017-11-09] MEDS: HEPARIN SODIUM,PORCINE 5,000 UNITS/ML VIAL SQ SCH ×2 (09:09→19:54)
[2017-11-09] MEDS: LevETIRAcetam 500 MG TABLET PO SCH ×2 (09:09→19:53)
[2017-11-09] MEDS: METOPROLOL SUCCINATE 25 MG ER TABLET PO SCH (09:09)
[2017-11-09 12:24] VITALS: BP 116/66
[2017-11-09 19:21] VITALS: BP 111/66
[2017-11-09] MEDS: RisperiDONE 3 MG TABLET PO SCH (19:53)
[2017-11-09 23:43] VITALS: BP 115/69
[2017-11-10 04:29] VITALS: BP 104/65
[2017-11-10 08:11] VITALS: BP 115/65
[2017-11-10] MEDS: PHENYTOIN SODIUM 100 MG ER CAPSULE PO SCH ×3 (08:49→21:23)
[2017-11-10] MEDS: LamoTRIgine 100 MG TABLET PO SCH ×2 (08:50→21:24)
[2017-11-10] MEDS: LevETIRAcetam 500 MG TABLET PO SCH ×2 (08:50→21:23)
[2017-11-10] MEDS: METOPROLOL SUCCINATE 25 MG ER TABLET PO SCH (08:51)
[2017-11-10] MEDS: PANTOPRAZOLE SODIUM 40 MG DR TABLET PO SCH (08:51)
[2017-11-10] MEDS: HEPARIN SODIUM,PORCINE 5,000 UNITS/ML VIAL SQ SCH ×2 (08:51→21:26)
[2017-11-10 12:44] VITALS: BP 110/65
[2017-11-10] MEDS: MAGNESIUM HYDROXIDE SUSPENSION 30 ML UDCUP PO PRN (16:10)
[2017-11-10 16:37] VITALS: BP 116/70
[2017-11-10 20:08] VITALS: BP 104/60
[2017-11-10] MEDS: RisperiDONE 3 MG TABLET PO SCH (21:26)
[2017-11-11 00:07] VITALS: BP 112/66
[2017-11-11 04:01] VITALS: BP 112/58
[2017-11-11 07:08] LABS: ALANINE AMINOTRANSFERASE 32 U/L (12-78); ALBUMIN 3.1 g/dL (3.4-5.0); ALKALINE PHOSPHATASE 130 U/L (46-116); ANION GAP 9 mmol/L (8-16); ASPARTATE AMINOTRANSFERASE 19 U/L (15-37); BILIRUBIN,TOTAL 0.3 mg/dL (0.1-1.0); CALCIUM, TOTAL 8.8 mg/dL (8.8-10.5); CARBON DIOXIDE 27 mmol/L (22-29); CHLORIDE 97 mmol/L (98-107); CREATININE 0.58 mg/dL (0.60-1.30); GLOMERULAR FILTR. RATE CALC > 60 mL/min (>60); GLUCOSE,RANDOM 80 mg/dL (70-110); SODIUM SERUM 133 mmol/L (136-145); TOTAL PROTEIN, SERUM 6.5 g/dL (6.4-8.2); UREA NITROGEN, BLOOD 17 mg/dL (7-18)
[2017-11-11] MEDS: HEPARIN SODIUM,PORCINE 5,000 UNITS/ML VIAL SQ SCH ×2 (08:20→21:34)
[2017-11-11 08:21] VITALS: BP 102/67
[2017-11-11] MEDS: PHENYTOIN SODIUM 100 MG ER CAPSULE PO SCH ×3 (08:21→21:33)
[2017-11-11] MEDS: PANTOPRAZOLE SODIUM 40 MG DR TABLET PO SCH (08:21)
[2017-11-11] MEDS: LevETIRAcetam 500 MG TABLET PO SCH ×2 (08:21→21:33)
[2017-11-11] MEDS: METOPROLOL SUCCINATE 25 MG ER TABLET PO SCH (08:22)
[2017-11-11] MEDS: LamoTRIgine 100 MG TABLET PO SCH ×2 (08:22→21:33)
[2017-11-11 15:30] VITALS: BP 105/59
[2017-11-11 20:27] VITALS: BP 111/69
[2017-11-11] MEDS: RisperiDONE 3 MG TABLET PO SCH (21:33)
[2017-11-11 23:52] VITALS: BP 100/62
[2017-11-12 05:06] VITALS: BP 110/67
[2017-11-12 07:22] VITALS: BP 123/72
[2017-11-12] MEDS: HEPARIN SODIUM,PORCINE 5,000 UNITS/ML VIAL SQ SCH (08:19)
[2017-11-12] MEDS: LevETIRAcetam 500 MG TABLET PO SCH (08:19)
[2017-11-12] MEDS: PHENYTOIN SODIUM 100 MG ER CAPSULE PO SCH ×2 (08:20→15:44)
[2017-11-12] MEDS: METOPROLOL SUCCINATE 25 MG ER TABLET PO SCH (08:20)
[2017-11-12] MEDS: LamoTRIgine 100 MG TABLET PO SCH (08:20)
[2017-11-12] MEDS: PANTOPRAZOLE SODIUM 40 MG DR TABLET PO SCH (08:20)
[2017-11-12 11:55] VITALS: BP 107/58
[2017-11-12] MEDS ORDERED: PHENY100 PO (16:13)
[2017-11-12] MEDS ORDERED: METO25XL PO (16:14)
[2017-11-12] MEDS ORDERED: PANT40TA25 PO (16:14)
[2017-11-12 16:37] VITALS: BP 121/74
== END 2017-11-12 17:55 | DRG 101 ==
LOC: EMS 18:21 → 5N 23:30 → 5S 11-01 18:40 → 5N 11-10 18:00
PROVIDERS: ADMIT Internal Medicine; ATTEND Internal Medicine
DX: G40.909 Epilepsy, unspecified, not intractable, without status epilepticus (principal); E87.1 Hypo-osmolality and hyponatremia; E44.1 Mild protein-calorie malnutrition; F20.0 Paranoid schizophrenia; R73.9 Hyperglycemia, unspecified; J44.9 Chronic obstructive pulmonary disease, unspecified; F17.210 Nicotine dependence, cigarettes, uncomplicated; I49.9 Cardiac arrhythmia, unspecified; I10 Essential (primary) hypertension; Z95.810 Presence of automatic (implantable) cardiac defibrillator; Z90.49 Acquired absence of other specified parts of digestive tract; Z79.899 Other long term (current) drug therapy; Z68.20 Body mass index [BMI] 20.0-20.9, adult
CPT/HCPCS: 70450; 82306; 82948; 83036; 83735; 84100; 84132; 84443; 93005; 93306; 95816; 96365; 96375; 97116; 97162; 97166; 97167; 97530; 97535; 99291; G0480; G0482; J0712; J1165; J1644; J2060; J3480; J7030; J7050; J7060